=== PATIENT | female | born 1950 | race Caucasian/White ===

== ENCOUNTER 2017-01-07 15:32 | Inpatient (IN) | payer MEDICARE, OTHER ==
[~2017-01-07] VITALS: Ht 157.5 cm; Wt 92.9 kg
--- NOTE | ~2017-01-07 | HP ---
PATIENT'S NAME: TORRI LOUIS [facility] AGE: 66 Y [address] ROOM: G3427 [place], [place] [address] LOCATION: [facility] ADMIT DATE: 01/07/2017 History & Physical DISCHARGE DATE: FAMILY PHYSICIAN: Erwin Hollis MD ATTENDING PHYSICIAN: Monae Mathis DATE OF SERVICE: HISTORY OF PRESENT ILLNESS: This 66 years' old was admitted and referred from [facility] with right frontoparietal brain mass status post biopsy and has been proved to be grade [address] Erwin Hollis. She is admitted for continuous medical treatment and intensive rehabilitation. 1. Unstable gait. 2. Dependent in activities of daily self-care status post biopsy of the brain tumor, glioblastoma multiforme, grade 4. 3. She also has marked weakness in the left upper and lower extremities, especially left upper extremity. 4. She has headaches, and she does not attend very well to the left side, dizziness on and off. PHYSICAL EXAMINATION: GENERAL: She is at the present time and at the time of admission, alert and oriented x3. VITAL SIGNS: Blood pressure 117/72, temperature 97.7, pulse 97, and respiratory rate 15. She is 5 feet 2 inches tall and weighs about 95 kg. HEENT: Head: Normocephalic except for slight, very minimal facial droop on the left side. However, her speech is clear and not wet. Tongue and soft palate are moving symmetrical. She can swallow without difficulty. NEUROLOGIC: She is at the present time able to comprehend and express without difficulty. She denied having any pain except for slight headache. At the present time, she is able to express herself and clearly. Voice is clear, not wet. NECK: Supple. Trachea is central. CHEST: Moving equally and the lungs are clinically clear. HEART: Regular sinus rhythm. ABDOMEN: Soft. She is slightly constipated on and off. We will address it. She is at the present time on the following medications: 1. Tylenol 650 mg q.6 hours. Do not exceed acetaminophen 4 g in q.24 hours. 2. Dulera 100 mcg/5 mcg inhaler daily. 3. Levothyroxine 50 mcg p.o. daily. 4. Colace 100 mg b.i.d. 5. Simvastatin 20 mg p.o. daily. PATIENT'S NAME: TORRI LOUIS [facility] AGE: 66 Y [address] ROOM: [place] [address] LOCATION: [facility] ADMIT DATE: 01/07/2017 History & Physical DISCHARGE DATE: FAMILY PHYSICIAN: Erwin Hollis MD ATTENDING PHYSICIAN: Monae Mathis 6. Keppra 500 mg p.o. b.i.d. 7. MiraLax 17 g p.o. daily, hold if loose bowels. 8. Dulcolax suppository 10 mg rectally p.r.n. 9. MOM 30 mL p.r.n. 10. Antivert 12.5 mg, give 25 mg p.o. daily and p.r.n. 11. Ibuprofen 200 mg p.o. b.i.d. At the present time, she is not on any anticoagulant. We will ask Dr. Riggins, neurosurgeon to advise. She can ambulate for the time being short distance for about 30 feet to 50 feet. Past history of significance: 1. Asthma. 2. Dyslipidemia. 3. Hypothyroid. Did discuss this patient with the referring physician, and we agreed that she will need intensive rehabilitation for about 3 weeks, aiming to discharge home at modified independence. We will put on intensive PT, OT, and speech 3 hours per day, 15 hours per week. We will send also for Keppra level in the a.m. She is on seizure precautions and has been thus marked on the chart. She is with the following allergies: 1. Sulfa. 2. Keflex. 3. Cephradine or Velosef. 4. Macrodantin. 5. Claritin. 6. Singulair. 7. Vioxx. 8. Clarinex. 9. Cephalosporins. 10. Cephalexin. 11. Nitrofurantoin. 12. Loratadine. 13. Montelukast. 14. Rofecoxib. 15. Desloratadine. 16. Lodine. 17. Urex. PATIENT'S NAME: TORRI LOUIS [facility] AGE: 66 Y [address] ROOM: [place] [address] LOCATION: [facility] ADMIT DATE: 01/07/2017 History & Physical DISCHARGE DATE: FAMILY PHYSICIAN: Erwin Hollis MD ATTENDING PHYSICIAN: Monae Mathis The patient will be put on intensive rehab for about 3 weeks, aiming to discharge home at modified independence. We will ask also Dr. Birmingham and hospitalist to follow as needed. On 01/08, her CBC was as follows: White BC 9.2, RBC 4.45, hemoglobin 13.2, hematocrit 39.8, platelets 212. CMS: Sodium 141, potassium 3.8, chloride 106, CO2 of 27, BUN 20, creatinine 0.8, glucose 103, and eGFR 78. UA grossly within normal limits. Prealbumin 25. We will put on intensive rehab and follow as necessary. All the above was explained to her, her , and her daughter. They verbalized understanding and agreement. MONAE MATHIS MD WMS/modl /[id number] D: 935 T: 711 HISTORY & PHYSICAL
--- NOTE | ~2017-01-07 | CON ---
PATIENT'S NAME: TORRI LOUIS [facility] AGE: 66 Y [address] ROOM: G[address] [place], [place] [address] LOCATION: [facility] ADMIT DATE: 01/07/2017 Consultation DISCHARGE DATE: FAMILY PHYSICIAN: Erwin Hollis MD ATTENDING PHYSICIAN: Danilo Mtahis DATE OF CONSULTATION: 01/08/2017 REFERRING PHYSICIAN: Peter Birmingham MD TEAM MEMBERS REPORTING: Include Dr. Mathis; Ioana Olivera, delinquency prevention social worker; Velma Everett, RN; Ina Buchanan, PT; Elisabeth Adams, PT; Ivon Seals, OT; Raegan Whiteside, Speech Therapy; and Gwendolyn Lozano, therapeutic recreation. CURRENT STATUS: Vineet Pereyra is a 66-year-old woman, admitted to our inpatient rehabilitation unit on January 07, 2017, with a diagnosis of glioblastoma multiforme. She also has a history of asthma, hypothyroidism, hyperlipidemia, and constipation. The patient did come to us from the [facility]. She is continent of bowel and bladder. She does occasionally dribble. She has an incision on her head, we are following. No complaints of pain. She is on a regular diet. Good appetite. Prealbumin is within normal limits. She can transfer tcv-ff-ahvbqn and lsypgt-tq-qcg, moderate assistance; haa-ty-xfvfq and exote-db-mzz and yqh-bd-pawtm and mwcjw-jt-tez, minimal assistance. She can walk 120 feet with a front-wheeled walker dependent. Goals have been set for contact guard assistance to standby assistance. She can dress her upper body at moderate assistance; lower body, dependent; grooming, standby assistance from a seated position; bathing, dependent; toilet and shower transfers, dependent; and toileting, dependent. Her left upper extremity has inconsistent movement. She does neglect that left arm. Her goals for OT have been set for standby. Comprehension is mod I to independent and language and expression, mod I to independent. She does have difficulty with scanning. She does compensate with cues. DISCHARGE PLAN: The patient is receiving 3 hours of PT, OT, and speech Saturday through Saturday. The patient has daily rehabilitation, nursing, and physiatry involvement as well therapeutic recreational services. The patient has shown functional improvement and is progressing. Please see her plan of care for specific goals. Plan is for patient to discharge in approximately 3 weeks. Plan is for patient to return to home with her in [place]. They plan to have radiation done in [place]. PATIENT'S NAME: TORRI LOUIS [facility] AGE: 66 Y [address] ROOM: [place] [address] LOCATION: [facility] ADMIT DATE: 01/07/2017 Consultation DISCHARGE DATE: FAMILY PHYSICIAN: Erwin Hollis MD ATTENDING PHYSICIAN: Danilo Mathis IOANA OLIVERA FOR DANILO MATHIS MD TD/modl /[id number] d: 01/13/17 1828 t: 02/18/17 1127, CONSULTATION REPORT
--- NOTE | ~2017-01-07 | CON ---
PATIENT'S NAME: TORRI LOUIS [facility] AGE: 66 Y [address] ROOM: [address] [place], [place] [address] LOCATION: [facility] ADMIT DATE: 01/07/2017 Consultation DISCHARGE DATE: FAMILY PHYSICIAN: Erwin Hollis MD ATTENDING PHYSICIAN: Danilo Dickens DATE OF CONSULTATION: 01/21/2017 PALLIATIVE CARE CONSULTATION: LOCATION: [facility], Room 3441. REFERRING PHYSICIAN: Danilo Dickens MD REASON FOR CONSULTATION: This is a Palliative Care referral due to decreasing overall functional status and declining, and depression due to recent diagnosis of grade 4 glioblastoma. HISTORY OF PRESENT ILLNESS: This is a 66-year-old female patient who had been in normal state of health until mid November 2016. She is retired and noticed that her left foot was dragging behind her. On 12/06/2016, she had developed ataxia and disequilibrium, went to see a doctor in [place], was examined, and had her ears irrigated, was put on ibuprofen and meclizine. Next day, the patient was unable to use her keyboard due to motor difficulties. The patient continued to have progressive disequilibrium and an intentional left-sided and left peripheral vision deficits. She went to the [place] [facility], had a CT scan that revealed a right-sided mass in her head and an MRI revealed a large right frontoparietal mass extending into the splenium of the corpus callosum, thalamus, and posterior basal ganglia suspicious for infiltrating glioma. [facility] On 01/02/2017, she had a right-sided image-guided craniotomy for open biopsy. Biopsy by Dr. Bhargav Villa. It was an open brain biopsy. No debulking surgery was performed. On 01/04/2017, she had seen Dr. Hal Ferguson to discuss chemotherapy options and radiation options. She was seen by Dr. Phelps consulted for Radiation Oncology. The patient was transferred to our Inpatient Rehabilitation Services to increase strength prior to getting radiation and chemotherapy. The patient had been progressing until recently and had declined in being able to have more left-sided weakness and deficit this last weekend, Saturday. The patient currently denies any pain, headache, or discomfort. No nausea or vomiting. Appetite is good. No shortness of breath. She is frustrated and angry on treatment and progression of disease. The patient denies being depressed, just PATIENT'S NAME: TORRI LOUIS [facility] AGE: 66 Y [address] ROOM: [address] [place], [place] [address] LOCATION: [facility] ADMIT DATE: 01/07/2017 Consultation DISCHARGE DATE: FAMILY PHYSICIAN: Erwin Hollis MD ATTENDING PHYSICIAN: Danilo Dickens more frustrated at not being able to care for herself and getting brain cancer, and not able to start her chemotherapy and radiation. PAST MEDICAL HISTORY: Medical problems: 1. Reactive airway disease since 1971. 2. Hypothyroidism. 3. Hyperlipidemia. 4. Osteoarthritis in left knee and ankles. 5. Colonic diverticulosis. 6. Class 2 obesity, BMI of 38.9. PAST SURGICAL HISTORY: 1. , 3, para 2, ABO 0. 2. In 2017, right-sided guided craniotomy for open biopsy. ALLERGIES: CEPHALEXIN LED TO URTICARIA, SULFA LED TO URTICARIA, LORATADINE, MONTELUKAST, MACRODANTIN OR NITROFURANTOIN, ROFECOXIB, CEPHRADINE, AND DESLORATADINE. CURRENT MEDICATIONS: 1. Dulera 100 mcg/5, 2 puffs every bedtime. 2. Colace 100 mg b.i.d. 3. Keppra 500 mg p.o. every 48 hours. 4. Synthroid 50 mcg daily. 5. MiraLAX 17 g daily. 6. Vitamin B12 p.o. daily. 7. Zocor 20 mg every p.m. 8. Lovenox 40 mg subcutaneous daily. 9. P.r.n. medications; albuterol sulfate 2.5 inhalations every 2 hours p.r.n. 10. Advil 200 mg p.o. b.i.d. 11. Antivert 25 mg p.o. daily. 12. Milk of magnesia 30 mL p.o. daily. 13. Tylenol 650 mg p.o. every 6 hours. 14. Dulcolax 10 mg suppository per rectum p.r.n. constipation. FAMILY HISTORY: Sister, colon cancer at age 60. Paternal aunt and three paternal uncles developed brain cancer when they were in their 50s and from it. Brother had diabetes. Sister, colon cancer, and paternal grandmother, stomach cancer. SOCIAL HISTORY: She is . Both she and her are retired. 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 They live in [place], have a son in [place], a son in [place], and a PATIENT'S NAME: TORRI LOUIS [facility] AGE: 66 Y [address] ROOM: [address] [place] [address] LOCATION: [facility] ADMIT DATE: 01/07/2017 Consultation DISCHARGE DATE: FAMILY PHYSICIAN: Erwin Hollis MD ATTENDING PHYSICIAN: Danilo Dickens daughter in [place]. No smoking, alcohol, or illicit drug use. REVIEW OF SYSTEMS: A complete review of systems was done and is negative except as mentioned in the HPI. PHYSICAL EXAMINATION: GENERAL: This is a 66-year-old female in no acute distress. Alert and oriented, and anxious about disease process and treatment plan. VITAL SIGNS: Temperature 97.3, pulse 91, respirations 18, blood pressure 124/78, and O2 saturation is 95%. She is 5 feet 2 inches. Weighs 204 pounds with a BMI of 38.9. SKIN: Warm, dry, color pale. HEENT: Head; normocephalic and atraumatic. Sclerae are nonicteric. Conjunctivae are pale pink. Mouth is pink and moist without exudate. Healed craniotomy scar. LYMPHATICS: No cervical adenopathy or thyromegaly. RESPIRATORY: Clear to auscultation bilaterally. Breath sounds even and regular. CARDIAC: S1 and S2 without murmurs or bruits. No lower extremity edema. ABDOMEN: Soft, nondistended, and nontender. Positive bowel tones. No hepatosplenomegaly. NEUROLOGIC: Grossly intact. MUSCULOSKELETAL: Flaccid on left side, on the left arm and weak in left leg. EXTREMITIES: No cyanosis or deformity. Palliative performance scale is 40%, mainly in bed, and able to do most activity and total care. Intake is normal. Level of consciousness is full. IMPRESSION: Weakness on the left side and fatigue, anxiety related to new diagnosis of glioblastoma and finances. PLAN: 1. I met with the patient. Discussed recent diagnosis. Both and the patient have a fair understanding of current diagnosis and treatment plan. The patient states that she was told by one doctor in [place] that she had about 18 months to live, another doctor told her that she could live between 5 and 10 years. 2. Discussion of goals of care. The patient is wanting to do aggressive treatments, chemotherapy and radiation to control tumor. Knows that she has to wait so long after biopsy to start treatment plan, was working to get medicine and possibly start radiation closer to home. Recently patient declined in overall physical status. is not able to care for at home. custodial facilities do not take with radiation PATIENT'S NAME: TORRI LOUIS [facility] AGE: 66 Y [address] ROOM: [facility] [place] [address] LOCATION: [facility] ADMIT DATE: 01/07/2017 Consultation DISCHARGE DATE: FAMILY PHYSICIAN: Erwin Hollis MD ATTENDING PHYSICIAN: Danilo Dickens and chemotherapy. Discussed possible options and goals of care. a. Would like to go home, but is not handicap accessible and not feasible. cannot care for due to his own physical problems. b. Wanted to look into [place] [facility] [place] [facility] or Care Home in [place]. Granddaughter works there. Discussed that if the patient went to an assisted living, she would still have to hire caregivers. Discussed some options of obtaining caregivers in the area. c. Wants to continue with aggressive treatment, get stronger and get back up worker to home. d. Would like to change rooms. Feels like this room is very depressing. 3. Code status and advance directive: The patient is currently a full code. We will discuss advanced directive and POLST form more tomorrow due to the patient's anxiety level. 4. Weakness and fatigue. She is working with Physical Therapy. Overall recent decline. May consider rescanning of brain to see if there is progression. Dexamethasone was stopped. We will defer to Oncology and hospitalists. 5. We will discuss with Ioana nephrology social worker on checking into options at assisted living facility in [place] and long-term in [place] with possibility of hiring caregivers if goes to assisted living facility. The patient would also like information on transportation from assisted living facilities, if they do it or not. We will check with nurses on possibly changing rooms. 6. We will continue to work on goals of cares and advance directive, and letting the patient vent. Thank you for allowing me to assist this patient and family. Total time was 55 minutes with 45 minutes of counseling, discussion of goals of care. ALANA LEPE NP FOR MD FITZ MOSES/brigitte /[id number] d: 01/22/17 1416 t: 02/01/17 1720, CONSULTATION REPORT
--- NOTE | ~2017-01-07 | CON ---
PATIENT'S NAME: TORRI LOUIS [facility] AGE: 66 Y [address] ROOM: [address] [place], [place] [address] LOCATION: [facility] ADMIT DATE: 01/07/2017 Consultation DISCHARGE DATE: FAMILY PHYSICIAN: Erwin Hollis MD ATTENDING PHYSICIAN: Danilo Dickens DATE OF CONSULTATION: 01/07/2017 REFERRING PHYSICIAN: Peter Birmingham MD REASON FOR CONSULTATION: Medical management. CHIEF COMPLAINT: Left upper and left lower extremity weakness. HISTORY OF PRESENT ILLNESS: This is a 66-year-old female with a history of brain tumor, diagnosed by biopsy in [facility] and according to the patient, there is no metastasis. The patient's complaint is left upper and left lower extremity weakness. The patient was referred here for strengthening of her weakness. The patient will be at rehab here for PT and OT. We have been consulted for medical management. The patient states that she feels well without any shortness of breath or chest pain or palpitation or any other problem besides the constipation and also this left upper and left lower extremity weakness. She also denies any seizure disorder in the past. REVIEW OF SYSTEMS: As mentioned in the history of present illness. All other systems were reviewed and were negative except those mentioned in the history of present illness. PAST MEDICAL HISTORY: 1. Asthma. 2. Hypothyroidism. 3. Hyperlipidemia. 4. Constipation. ALLERGIES: KEFLEX CAUSES HIVES; SINGULAIR CAUSES TINNITUS; CEPHALOSPORIN, UNKNOWN; CLARINEX, UNKNOWN; CLARITIN CAUSES TINNITUS; LODINE, UNKNOWN REACTION; NITROFURANTOIN, UNKNOWN REACTION; SULFA, UNKNOWN REACTION; UREX, ALSO UNKNOWN REACTION; VELOSEF, ALSO UNKNOWN REACTION; VIOXX, CAUSES NAUSEA AND VOMITING. PATIENT'S NAME: TORRI LOUIS [facility] AGE: 66 Y [address] ROOM: [address] [place], [place] [address] LOCATION: [facility] ADMIT DATE: 01/07/2017 Consultation DISCHARGE DATE: FAMILY PHYSICIAN: Erwin Hollis MD ATTENDING PHYSICIAN: Danilo Dickens SOCIAL HISTORY: Denies any cigarette or alcohol or any illegal drug use. FAMILY HISTORY: The patient could not remember much about her parents' medical history. This was question and the patient could not remember. PAST SURGICAL HISTORY: Brain tumor, status post biopsy in [facility]. PHYSICAL EXAMINATION: VITAL SIGNS: At the time of my evaluation; temperature 98.6, heart rate 79, respirations 16, blood pressure 112/70, and saturation 94% on room air. GENERAL APPEARANCE: Alert and oriented x3. Currently, in no acute distress. HEENT: Pupils equally round and reactive to light. Extraocular muscles intact. Visual patterson intact. Anicteric sclerae. Nasal turbinates are normal bilaterally. Moist oral mucosa. No tongue deviation upon protrusion. No facial droop. No slurred speech. NECK: No JVD. CARDIOVASCULAR: Regular rate and rhythm. Normal S1 and S2. No murmur. No rubs. No gallops. RESPIRATORY: Clear to auscultation. No rales. No rhonchi. No wheezing. No crackles. ABDOMEN: Obese, soft, nontender, nondistended, bowel sounds present. No mass. EXTREMITIES: No edema in upper or lower extremities. NEUROLOGIC: Remarkable for left upper extremity weakness about 2/5 and the left lower extremity weakness at about 4/5. Sensation intact. No facial droop. Pronator drift positive on the left side. Fnrstq-cc-xtom unable to be performed with the left hand due to the muscle weakness. No facial droop. No slurred speech. No tongue deviation upon protrusion. Visual field intact. Gait not assessed due to fall risk. Babinski positive on the left foot. Deep tendon reflex present +2 bilaterally at both knees and also at both biceps. Proprioception and vibration intact in all extremities. LABORATORY DATA: None. IMAGING STUDIES: None. ASSESSMENT AND PLAN: 1. Regarding her brain tumor: Defer to rehab service and also to Neurosurgery Service. Will continue the Keppra for seizure prevention. She is taking Keppra 500 mg p.o. b.i.d. PATIENT'S NAME: TORRI LOUIS [facility] AGE: 66 Y [address] ROOM: [address] [address] LOCATION: [facility] ADMIT DATE: 01/07/2017 Consultation DISCHARGE DATE: FAMILY PHYSICIAN: Erwin Hollis MD ATTENDING PHYSICIAN: Danilo Dickens 2. Regarding her asthma: Well controlled. Continue inhaled steroids and the long-acting beta2-agonist with Dulera. 3. Regarding her hypothyroidism: Continue levothyroxine 50 mcg p.o. daily. 4. Regarding her hyperlipidemia: Continue simvastatin 20 mg p.o. every night. 5. Regarding her constipation: Continue Dulcolax suppository p.r.n. as well as magnesium hydroxide p.r.n. and also continue daily MiraLax once daily. 6. Regarding her deep vein thrombosis prophylaxis: Defer to Neurosurgery and to rehab service. Time spent in care on the day of consultation 35 minutes where 10 minutes was spent on chart review and the remainder of time was spent on interview and physical examination and also on counseling. The counseling includes going over plan of care with the patient and also addressing all her questions and concerns to her satisfaction. Further plan will depend on clinical course. MD TANNER ALEJO/brigitte /[id number] d: 01/08/17121 t: 01/12/175, CONSULTATION REPORT
--- NOTE | ~2017-01-07 | CON ---
PATIENT'S NAME: TORRI LOUIS [facility] AGE: 66 Y [address] ROOM: G3441 [place], [place] [address] LOCATION: [facility] ADMIT DATE: 01/07/2017 Consultation DISCHARGE DATE: 01/25/2017 FAMILY PHYSICIAN: Erwin Hollis MD ATTENDING PHYSICIAN: Danilo Mathis DATE OF CONSULTATION: 01/22/2017 REFERRING PHYSICIAN: Peter Birmingham MD TEAM MEMBERS REPORTING: Dr. Mathis; Ioana Olivera, social service technician; inpatient rehab nursing staff; Ina Buchanan, PT; Elisabeth Adams, PT; Ivon Seals, OT; Raegan Whiteside, Speech Therapy; Gwendolyn Lozano, therapeutic rec; and sister Gwen Qureshi, [facility]. CURRENT STATUS: Torri is a 66-year-old woman, admitted to our inpatient rehab unit on January 07, 2017, with a diagnosis of glioblastoma multiforme. The patient is incontinent of bladder occasionally. Does not complain of pain. She is on a regular diet. Prealbumin is 25, currently at low nutritional risk. She can transfer sit to supine and supine to sit at max assistance; sit to stand and stand to sit, minimal assistance; and bed to chair and chair to bed, moderate assistance. She can walk 20 to 30 feet with a alfredito-walker at minimal assistance. She met 0 short-term PT goals. The patient is dependent for upper and lower body dressing. Grooming, standby. Bathing, dependent. Shower and toilet transfers, dependent, and toileting, dependent. Feeding is standby. Comprehension is at minimal assistance. Language and expression, minimal assistance. Memory, standby, and problem solving, minimal assistance. Car transfers are currently contact guard assistance. The patient does seem to be very angry. She has decreased flexibility in her thinking. DISCHARGE PLAN: The patient is receiving 3 hours of PT, OT and speech Saturday through Saturday. The patient has daily rehab, nursing, and physiatry involvement as well as therapeutic rec services. The patient has shown functional improvement and is progressing. Please see her plan of care for specific goals. Plan is for patient to discharge on January 25, 2017. We were unable to get the patient into a residential facility due to patient being on oral Temodar and needing to start radiation therapy. The patient will be going to [facility] with family paying for additional caregivers. IOANA OLIVERA FOR DANILO MATHIS MD PATIENT'S NAME: TORRI LOUIS [facility] AGE: 66 Y [address] ROOM: [address] [address] LOCATION: [facility] ADMIT DATE: 01/07/2017 Consultation DISCHARGE DATE: 01/25/2017 FAMILY PHYSICIAN: Erwin Hollis MD ATTENDING PHYSICIAN: Danilo Mathis TD/marilynnl /[id number] d: 02/05/17 0013 t: 02/18/17 1132, CONSULTATION REPORT
--- NOTE | ~2017-01-07 | DS ---
PATIENT'S NAME: TORRI LOUIS [facility] AGE: 66 Y [address] ROOM: [address] [place] [address] LOCATION: [facility] ADMIT DATE: 01/07/2017 Discharge Summary DISCHARGE DATE: FAMILY PHYSICIAN: Erwin Hollis MD ATTENDING PHYSICIAN: Monae Mathis This lady was admitted to Rehab Unit at [facility] on 01/07/2017, is discharged to go to assisted living in [place], [place], on 01/25/2017. She is at the present time alert and oriented, markedly weak on the left upper and lower extremities. Has deteriorated recently. Has been consistently and regularly followed by Dr. Birmingham and also by Dr. Riggins and hospitalist on a regular basis. She is at the present time alert and oriented. Vitals are as follows: Blood pressure 115/84, temperature 98.0, pulse 97, and respiration rate 16. She is consistently getting weaker on the left upper and lower extremities, and is at the present time to continue with PT, OT, Speech, and aide at the [facility] in [place]. She is on the following medications: 1. Vitamin B12 500 mcg p.o. daily. 2. Decadron 4 mg p.o. q.6 hours. 3. Colace 100 mg p.o. daily. 4. Levothroid 50 mcg p.o. daily. 5. Protonix 40 mg p.o. daily. 6. MiraLAX 17 g p.o. daily as needed. 7. Zocor 20 mg p.o. in the evening. 8. Dulera 2 puffs inhalation p.r.n. and in the evening. 9. Tylenol 650 q.6 hours, do not exceed acetaminophen 4 g q.24 hours. 10. Dulcolax suppository 10 mg rectally p.r.n. 11. MOM 30 mL p.r.n. The patient is with the following discharge summary: 1. Unstable gait. 2. Dependent in activities of daily and self-care. 3. Marked left-sided weakness with glioma of the brain status post right- sided biopsy done per history. 4. Headache with dizziness and neglect of the left side. 5. Hypothyroid. 6. Osteoarthritis with left knee and ankle involved. 7. Dyslipidemia. 8. Cdgf-te-rsqfmjgj obesity. PATIENT'S NAME: TORRI LOUSI [facility] AGE: 66 Y [address] ROOM: [address] [place] [id number] LOCATION: [facility] ADMIT DATE: 01/07/2017 Discharge Summary DISCHARGE DATE: FAMILY PHYSICIAN: Erwin Hollis MD ATTENDING PHYSICIAN: Monae Mathis 9. Colonic diverticulitis as per history. She is not to drive and/or operate on any mechanical devices until she is re- evaluated. I have given her Home Health, PT, OT, Speech, and [facility] with aide 3 times per week for the coming 4 weeks. Followup with her family physician, and renewal of her medication and her therapy through her family. All the above was explained to her and her in detail and all of their questions answered. They verbalized understanding and agreement with plan of care. MONAE MATHIS MD WMS/modl /[id number] d: 01/25/17209 t: 01/25/17 0726, DISCHARGE SUMMARY
--- NOTE | ~2017-01-07 | CONS ---
PATIENT'S NAME: TORRI LOUIS [facility] AGE: 66 Y [address] ROOM: [address] [place], [place] [address] LOCATION: [facility] ADMIT DATE: 01/07/2017 Oncology Report DISCHARGE DATE: FAMILY PHYSICIAN: Erwin Hollis MD ATTENDING PHYSICIAN: Danilo Dickens RADIATION THERAPY CONSULTATION DATE OF SERVICE: REFERRING PHYSICIAN: Peter Birmingham MD DIAGNOSIS: Glioblastoma. Dear Doctor: It was a pleasure to see in routine inpatient consultation Mrs. Torri Louis. As you recall, this is a 66-year-old white female, recently diagnosed with multifocal brain lesions, which upon the frozen section were consistent with high-grade glioblastoma. In late November of 2016, the patient noted onset of left lower extremity weakness and numbness as well as some difficulty with ambulation and complaining of stubbing her toes. Also complained of some episodes of dizziness at that point. The patient was seen by her primary care physician. He started treating her for vertigo. In mid December, the patient's symptoms progressed. She had some numbness in the left finger tips as well as some left upper extremity neglect. The patient was seen in the emergency room, underwent a workup including an MRI, which revealed a multifocal contrast enhancing mass in the right cerebral hemisphere. The patient was transferred to [facility] for neurological evaluation. An MRI done on 12/26/2016 revealed a large conglomerate of frontoparietal contrast-enhancing masses with extension into the splenium of the corpus callosum, thalamus, and posterior basal ganglia, all of this is suspicious for an infiltrating glioma. The patient was started on Keppra, and then was readmitted on 01/02/2017, underwent a right-sided image-guided craniotomy with biopsy. Final pathology came back as glioblastoma. Postop MRI revealed evidence of biopsy, but otherwise was unchanged. The patient has been sent to [facility] for rehabilitation, and she is doing reasonably well. When seen today, the patient is sitting in a chair. Her is in the room. She is alert and oriented. States that she has weakness significantly in her left upper extremity, somewhat in her left lower extremity. She is aware of her diagnosis, indicates she wishes to be treated in [place], PATIENT'S NAME: TORRI LOUIS [facility] AGE: 66 Y [address] ROOM: [address] [place], [place] [address] LOCATION: [facility] ADMIT DATE: 01/07/2017 Oncology Report DISCHARGE DATE: FAMILY PHYSICIAN: Erwin Hollis MD ATTENDING PHYSICIAN: Danilo Dickens [place], which is closer to home for her. ALLERGIES: THE PATIENT HAS ALLERGIES TO KEFLEX, SINGULAIR, CEPHALOSPORINS, CLARINEX, CLARITIN, LODINE, MACRODANTIN, SULFA, UREX, VELOSEF, VIOXX. MEDICATIONS: Current medications include: 1. Lovenox. 2. Dulera. 3. Levothroid. 4. Colace. 5. Zocor. 6. Keppra. 7. MiraLAX. 8. Dulcolax. 9. MOM. 10. Antivert. 11. Advil. 12. Tylenol. PAST MEDICAL HISTORY: Positive for asthma, hyperlipidemia, and thyroid disease. PAST SURGICAL HISTORY: Positive for 3 C-sections. SOCIAL HISTORY: The patient indicates that on her father side, she had 3 uncles who had brain tumors. Also indicates there was another type of malignancy in the family on her father's side. The patient has 3 children. SOCIAL HISTORY: The patient was born in [place], [place]. She indicates that she did not smoke, did not drink. No history of drug use noted. No previous history of radiation therapy or chemotherapy noted. REVIEW OF SYSTEMS: GENERAL: She indicates she is doing well, has not lost weight. She does indicate she had some staggering when she walks. HEADACHES: No complaints of significant headache. Did have some complaints of dizziness. VISION: No problems with vision. HEARING: No complaints of hearing problems. ORAL CAVITY: No complaints of problems with the oral cavity. PATIENT'S NAME: TORRI LOUIS [facility] AGE: 66 Y [address] ROOM: [address] [place], [place] [address] LOCATION: [facility] ADMIT DATE: 01/07/2017 Oncology Report DISCHARGE DATE: FAMILY PHYSICIAN: Erwin Hollis MD ATTENDING PHYSICIAN: Danilo Dickens NECK: No complaints of neck problem. LUNGS: No complaints of shortness of breath. COR: No complaints of left arm pain. STOMACH: No problems with GI problems. : No problems passing her urine. No hematuria. NEUROLOGICAL: The patient did complain of some dizziness and difficulty with ambulation. MUSCULOSKELETAL: No significant complaints. ENDOCRINE: The patient does give a history of hypothyroidism. PRIOR AUTHORIZATION TECHNICIAN: The patient is a 3 with 3 C-sections. PHYSICAL EXAMINATION: VITAL SIGNS: Temperature of 98, a pulse of 82, a blood pressure 118/84, weight is 96.3 kg. GENERAL: A well-developed, well-nourished white female, lying in bed. HEAD AND NECK: Normocephalic, atraumatic. Extraocular motions are intact. Oral cavity, no masses or mycotic lesions. NECK: No masses noted. NEUROLOGIC: The patient is alert and oriented x3. Cranial nerves are grossly normal. Muscle strength on the right are 5/5 upper and lower extremities. On the left, the patient has 3+ to 4- out of 5 strength in the left upper extremity, and 4- out of 5 in the left lower extremity. We did not attempt to walk the patient today. Mini-mental exam grossly normal. This concluded the limited physical exam of this patient. LABORATORY DATA: The patient has had scans done. This indicated the patient had a large right occipital lobe and right temporal lobe mass with right-sided basal ganglia, thalamic lobe masses noted. These masses measured up to 7.8 cm in largest axial dimension with several ring-enhancing components measuring up to 11 mm in size. Abnormal FLAIR was seen around these areas. Local mass effect with 4 mm of right to left subfalcine shift was noted. Pathology has come back as glioblastoma. ICD 10. IMPRESSION: A 66-year-old white female with a biopsy-proven glioblastoma. PLAN: We discussed with the patient and her the options available to her. We went over the potential risks, benefits of radiation therapy. Indicated that standard of care per the [employer] would be that of a radiotherapy for a 6-week period of time with concomitant Temodar. PATIENT'S NAME: TORRI LOUIS [facility] AGE: 66 Y [address] ROOM: [place] [address] LOCATION: [facility] ADMIT DATE: 01/07/2017 Oncology Report DISCHARGE DATE: FAMILY PHYSICIAN: Erwin Hollis MD ATTENDING PHYSICIAN: Danilo Dickens We went over the risks and benefits and side effects of therapy. The patient and her asked questions. These were answered to their satisfaction. The patient indicated she wished to be treated in the facility at [place] since this was closer to home. We indicated we were in agreement with this, but that we would not want the patient's therapy being put off for a protracted period of time. As such, we will check on the patient next week. Should she be progressing with her physical rehabilitation, we would have her sent to [place] for evaluation at their facility for radiotherapy. Should her potential start date would be extended beyond what would be a norm, we would consider starting her in our facility with the thought being that at whatever facility she starts at, should be the facility at which she completes her therpy. We thank you for allowing us to consult on this patient. Sincerely, JANETTE LACEY MD, PHD FZL/modl /[id number] CC: MD Danilo Bruno MD Daniel Surdell, MD W Zhen, MD d: 01/11/17 2108 t: 01/27/17 0958, CONSULTATION REPORT
--- NOTE | ~2017-01-07 | CON ---
PATIENT'S NAME: TORRI LOUIS [facility] AGE: 66 Y [address] ROOM: [id number] [place], [place] [address] LOCATION: [facility] ADMIT DATE: 01/07/2017 Consultation DISCHARGE DATE: FAMILY PHYSICIAN: Erwin Hollis MD ATTENDING PHYSICIAN: Danilo Dickens DATE OF CONSULTATION: 01/10/2017 REFERRING PHYSICIAN: Peter Birmingham MD HISTORY OF PRESENT ILLNESS: Torri Louis is a 66-year-old woman with a glioblastoma multiforme. The history of the present illness is from the patient who is a good historian; her who is helpful; from review of the [facility] record; and from review of the records obtained from the [facility]. The patient was in her normal state of health until mid November 2016. She lived in [place], [place] with her . She was retired. She had no exercise program. Although she experienced some discomfort in her left knee when she walked, she had no practical limits. In mid November 2016, the patient noticed her left foot "dragged" behind her. On 12/06/2016, the patient developed ataxia and disequilibrium. She was concerned she might have benign paroxysmal positional vertigo, and reported for evaluation to a clinic in [place]. The patient was examined. One of her ear canals contained excessive wax, which was irrigated. Ibuprofen and meclizine were prescribed. The next day, the patient was unable to use her keyboard because of motor difficulties. The disability did not improve. In mid December, the patient developed progressive disequilibrium, and then inattention to the left side and left peripheral visual field defects. The patient reported for evaluation of her hemineglect and hemiparesis. She was seen in the [place] [facility]. A CAT scan revealed a right-sided mass. An MRI revealed a large right frontoparietal mass extending to the splenium of the corpus callosum, thalamus, and posterior basal ganglia suspicious for an infiltrating glioma. The patient was placed on dexamethasone, and was referred to the [facility]. At the [facility], the patient's condition was stabilized. She was discharged home for several days, and then returned on 01/02/2017. On that date, Dr. Bhargav Villa performed a right-sided image-guided craniotomy for open biopsy. The brain biopsy was done with the Patient Engagement Systems Navigational System. It was an open brain biopsy. Debulking surgery could not be performed. The patient tolerated PATIENT'S NAME: TORRI LOUIS [facility] AGE: 66 Y [address] ROOM: [place] [address] LOCATION: [facility] ADMIT DATE: 01/07/2017 Consultation DISCHARGE DATE: FAMILY PHYSICIAN: Erwin Hollis MD ATTENDING PHYSICIAN: Danilo Dickens the procedure reasonably well. Following her evaluation, the patient was seen in consultation. On 01/04/2017, Dr. Hal Ferguson saw the patient. He recommended concurrent radiation with temozolomide 75 mg/m2 p.o. daily for six weeks in combination with radiation, followed by maintenance temozolomide of 150 mg/m2 p.o. daily for five days monthly. The patient was seen in Radiation Oncology consultation by Dr. Geovanny Phelps. Dr. Phelps concurred with those recommendations. The biopsy revealed a WHO grade IV/IV glioblastoma multiforme. The mutant IDH1 was not present, and the mutant p3 was overexpressed. The MGMT promotor methylation status has not been ascertained. The patient is currently on the Inpatient Rehabilitation Service. She is unable to walk by herself. She can feed herself. She needs standby assist to walk. She may have some persistent disequilibrium, and has persistent left arm weakness as well as left leg weakness. The patient has a positive family history of cancer. She makes the point that her paternal aunt developed a brain cancer when she was over 50 and . Three paternal uncles also had brain cancer and when they were over 50. She had a sister who had colon cancer at age 60. ACTIVE MEDICAL PROBLEMS, CHRONIC AND DIAGNOSED: 1. Reactive airways disease since 1971. The patient has had three attacks. She has not been hospitalized. She has been on inhaled bronchodilators and corticosteroids. 2. Hypothyroidism noted in 2014 on a regular checkup. She has experienced some weight loss, and has experienced improvement in her hair growth since she has been on thyroid replacement. 3. Hyperlipidemia noted in 2006. 4. Osteoarthritis in the left knee and ankles. 5. Colonic diverticulosis noted on screening colonoscopy in 2010. 6. Partially empty sella noted on MRI scan. 7. Class II obesity. On 01/07/2017, the BMI was 38.9 kg/m2. ACUTE MEDICAL ILLNESSES (RESOLVED), PAST SURGERIES, AND INJURIES: 1. 1971 to 1979: G3, P3, AB0. All the patient's deliveries were by section. 2. 2016, right-sided image-guided craniotomy for open biopsy. MEDICATIONS UPON ADMISSION: 1. Acetaminophen 650 mg p.o. every six hours p.r.n. pain. 2. Fluticasone/salmeterol one puff inhaled daily. PATIENT'S NAME: TORRI LOUIS [facility] AGE: 66 Y [address] ROOM: [place] [address] LOCATION: [facility] ADMIT DATE: 01/07/2017 Consultation DISCHARGE DATE: FAMILY PHYSICIAN: Erwin Hollis MD ATTENDING PHYSICIAN: Danilo Dickens 3. Ibuprofen 200 mg p.o. b.i.d. 4. Levetiracetam 500 mg p.o. b.i.d. 5. Levothyroxine sodium 0.05 mg p.o. q.24 h. 6. Meclizine 25 mg p.o. q.24 h. 7. Simvastatin 20 mg p.o. at bedtime. ADVERSE REACTIONS TO MEDICATIONS, TRANSFUSIONS, AND ALLERGIES: 1. Cephalexin led to urticaria. 2. Sulfa led to urticaria. 3. Loratadine. 4. Montelukast. 5. Nitrofurantoin. 6. Rofecoxib. 7. Cephradine. 8. Desloratadine. The patient denies any history of transfusions. TOBACCO: None. ALCOHOL: None. CAFFEINE: None. IMMUNIZATIONS: Positive flu. Positive Pneumovax in 2015. Negative tetanus toxoid booster in last ten years. Positive varicella zoster virus. FAMILY HISTORY: As noted, the patient reports her sister had colon cancer at 60; a paternal aunt and three paternal uncles developed brain cancer when they were 50 and from it. SOCIAL HISTORY: The patient was born in [place], [place] but graduated a [place], [place] [employer]. She went to a community college, but did not graduate. 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 Her was a anthropology department chair. They have lived in [place], [place] since 1971. They have a son in [place] and a son in [place], [place]. They have a daughter in [place], [place]. They are members of the [employer] [employer] [facility] [employer] [employer]. REVIEW OF SYMPTOMS: PATIENT'S NAME: TORRI LOUIS [facility] AGE: 66 Y [address] ROOM: [facility] [place] [address] LOCATION: [facility] ADMIT DATE: 01/07/2017 Consultation DISCHARGE DATE: FAMILY PHYSICIAN: Erwin Hollis MD ATTENDING PHYSICIAN: Danilo Dickens Negative other than those noted in the history of the present illness. PHYSICAL EXAMINATION: VITAL SIGNS: Pulse was 80 and regular, blood pressure was 120/85, respiratory rate was 18, and temperature was 98 degrees. Height is 62 inches and weight is 96.5 kg (213 pounds) with BMI of 38.9 kg/m2. GENERAL: Well-developed, obese, 66-year-old female, in no acute distress. HEENT: Healed craniotomy scar. LYMPHATICS: Lymph nodes were nonpalpable. NECK: Without JVD or carotid bruits. CHEST: Clear. CARDIOVASCULAR: Regular rate and rhythm. No murmurs, bruits, or adventitious sounds. BREASTS: Not examined. ABDOMEN: Healed section scar. No masses, tenderness, or megaly. GENITALIA AND RECTAL: Not examined. EXTREMITIES: Without peripheral edema. Pulses were 2+ throughout. NEUROLOGICAL: Cranial nerves II through XII were intact. Strength was 5/5 on the right. Strength in the left leg was 4/5 and the left arm is 2/5. IMPRESSION: 1. A 66-year-old woman with a WHO grade IV/IV mutant IDH1 not present, p53 overexpression present, MGMT methylation promotor status currently undetermined, glioblastoma multiforme of the frontoparietal area of the brain, also involving the thalamus, posterior basal ganglia, and splenium of the corpus callosum, inoperable for cure. The patient's Karnofsky performance status is currently 40%. 2. Risk factors include her age of 66. Given her reported family history, a genetics consultation is reasonable and standard. 3. The patient is currently on inpatient rehabilitation. The adjuvant chemoradiation program that has been recommended is appropriate for patients with a Karnofsky performance status of 70% or greater. She is committed to this program. It is reasonable to implement it as long as her performance status does not decline and we hope it will improve. 4. If the patient's performance status does not improve, standard adjuvant temozolomide and alternating electric currents need to be re-evaluated. 5. The patient should be able to tolerate her therapy without grade 3 or 4 toxicity. 6. The patient is currently on postoperative day 8 following her open biopsy. Three weeks of rehabilitation are currently anticipated. We will need to involve Radiation Oncology to see when radiation can be initiated, and to see if it is possible to transfer to another Radiation Oncology Unit in the middle of the treatment program. It would certainly be easy to transfer her medical oncology care, but this is less complex PATIENT'S NAME: TORRI LOUIS [facility] AGE: 66 Y [address] ROOM: [place] [address] LOCATION: [facility] ADMIT DATE: 01/07/2017 Consultation DISCHARGE DATE: FAMILY PHYSICIAN: Erwin Hollis MD ATTENDING PHYSICIAN: Danilo Dickens to plan than radiation oncology patterson. RECOMMENDATIONS: DIAGNOSTIC 1. Consult Dr. Lauro Morales. 2. Determine the MGMT promotor methylation status. This might help her clinicians prognosticate and treat in the future. 3. If Dr. Morales is agreeable, the patient will receive involved field radiation therapy, 6000 cGy in thirty 200 cGy fractions over six weeks in conjunction with temozolomide 75 mg/m2 p.o. at bedtime starting the night prior to the initiation of radiation and completed the night prior to the last radiation fraction. 4. Dapsone or inhaled pentamidine will have to be employed for prophylaxis of Pneumocystis jiroveci. 5. It would be reasonable to taper and discontinue her levetiracetam over the next 2 to 3 weeks if she does not have seizures. 6. We will defer to Dr. Riggins's recommendations regarding steroids. PATIENT EDUCATION 1. Gave her the [employer]. material on glioblastoma multiforme, and gave her a customized handout on her situation. 2. Recommended a Genetics consultation. MD JADEN HOLLIDAYB/modl /[id number] CC: MD Bhargav Madrigal MD Fishel Z Liberman, MD, PhD MD Louisa Walters APRN Chinyere N Obasi, MD PATIENT'S NAME: TORRI LOUIS [facility] AGE: 66 Y [address] ROOM: [place] [address] LOCATION: [facility] ADMIT DATE: 01/07/2017 Consultation DISCHARGE DATE: FAMILY PHYSICIAN: Erwin Hollis MD ATTENDING PHYSICIAN: Danilo Dickens MD Shawn P Murdock, MD Chung Chen, MD d: 01/11/178 t: 01/14/171056, CONSULTATION REPORT
--- NOTE | ~2017-01-07 | CON ---
PATIENT'S NAME: TORRI LOUIS [facility] AGE: 66 Y [address] ROOM: [id number] [place], [place] [address] LOCATION: [facility] ADMIT DATE: 01/07/2017 Consultation DISCHARGE DATE: 01/25/2017 FAMILY PHYSICIAN: Erwin Hollis MD ATTENDING PHYSICIAN: Danilo Mathis DATE OF CONSULTATION: 01/15/2017 REFERRING PHYSICIAN: Peter Birmingham MD TEAM MEMBERS REPORTING: Dr. Mathis; Ioana Olivera, professor of social work. inpatient rehab nursing staff; Ina Buchanan, PT; Elisabeth Adams, PT; Ivon Seals, OT; Raegan Whiteside, Speech Therapy; Gwendolyn Lozano, therapeutic rec; and sister Gwen Francisco, Pastoral Care. CURRENT STATUS: Torri is a 66-year-old woman, admitted to our inpatient rehab unit on January 07, 2017, from [facility] with a diagnosis of glioblastoma multiforme. The patient also has a history of reactive airway disease, hypothyroidism, hyperlipidemia, osteoarthritis, colonic diverticulosis, and class 2 obesity. The patient is continent of bowel and bladder. She has a healing incision. Takes Tylenol for pain. The patient is on a regular diet. Currently, at low nutritional risk. She can transfer sit to supine and supine to sit at moderate assistance; sit to stand and stand to sit, contact guard assistance; stand pivot transfers, minimal assistance. She can walk 15 to 60 feet with a alfredito- walker and cuing at minimal assistance. Losses of balance when turning. She can climb 4 stairs with 1 railing, which is still a dependent task. She can dress her upper body at max assistance; lower body, dependent. Grooming, standby; bathing, moderate assistance; toilet and shower transfers, minimal assistance; toileting, dependent; feeding, standby. 1/4 short-term OT goals were met. The patient's comprehension is at minimal assistance. Language and expression, minimal assistance. Memory mod I to independent, and problem solving, minimal assistance. The patient does exhibit some visual neglect, some pocketing. She is very tangent in conversation and exhibits a facial droop. She has contact guard assistance for car transfers, needs cuing for scanning. Overall safety awareness is poor. Patient does enjoy prayer with pastoral care. DISCHARGE PLAN: The patient is receiving 3 hours of PT, OT, and speech Saturday through Saturday. The patient has daily rehab, nursing, and physiatry involvement as well as therapeutic rec services. The patient has shown functional improvement and is progressing. Please see her plan of care for specific goals. Plan is for patient to discharge soon. Working on what the discharge plan will be as patient would like to return to home, however, patient's does not feel PATIENT'S NAME: TORRI LOUIS [facility] AGE: 66 Y [address] ROOM: [place] [address] LOCATION: [facility] ADMIT DATE: 01/07/2017 Consultation DISCHARGE DATE: 01/25/2017 FAMILY PHYSICIAN: Erwin Hollis MD ATTENDING PHYSICIAN: Danilo Mathis he can care for her at this time. IOANA OLIVERA FOR DANILO MATHIS MD TD/modl /[id number] d: 02/04/17 2303 t: 02/18/17 1129, CONSULTATION REPORT
--- NOTE | 2017-01-07 18:50 | NUR ---
Here from [facility] where she had surgery for glioblastoma & had brain surgery.Has incision Rt.side of head w/sutures.Has Lt.sided weakness.Up with walker & 1-2 assists.Is A/O.No trouble swallowing.Is unsteady on feet.Alot of allergies.No c/o pain. & daughter were here & they transported her here from [place].
[2017-01-07] MEDS ORDERED: TYLENOL325 MG PO (20:26)
[2017-01-07] MEDS ORDERED: ADVIL200 MG PO (20:27)
[2017-01-07] MEDS ORDERED: ADVAIR 100-501 EACH INH (20:27)
[2017-01-07] MEDS ORDERED: KEPPRA500 MG PO (20:27)
[2017-01-07] MEDS ORDERED: LEVOTHROID (SY50 MCG PO (20:28)
[2017-01-07] MEDS ORDERED: MECLIZINE HCL25 MG PO (20:29)
[2017-01-07] MEDS ORDERED: ZOCOR20 MG PO (20:30)
--- NOTE | 2017-01-08 03:30 | NUR ---
Significant Event: PATIENT IS ALERT AND ORIENTED. VSS. REPORTED THAT SHE CAN BE FORGETFUL ALTHOUGH THIS WAS NOT OBSERVED. BIOPSY SITE TO RIGHT POST. HEAD. UP X1 WITH WALKER/GAIT BELT. PATIENT HAS LEFT SIDED WEAKNESS. NEEDS A SLING FOR LEFT UPPER ARM. PATIENT HAS NOT YET HAD A BM AND CAN NOT RECALL WHEN HER LAST BM WAS. MIRALAX AND COLACE ADMINISTERED LAST NIGHT. HAS SUPPOSITORY AVAILABLE. Follow up:
[2017-01-08 03:57] LABS: BILIRUBIN URINE NEGATIVE (NEGATIVE); BLOOD URINE NEGATIVE /UL (NEGATIVE); COLOR URINE YELLOW (YELLOW); GLUCOSE URINE NEGATIVE (NEGATIVE); KETONE URINE NEGATIVE (NEGATIVE); LEUKOCYTES URINE NEGATIVE /UL (NEGATIVE); NITRITE URINE NEGATIVE (NEGATIVE); PH URINE 6.5 (4.0-8.0); PROTEIN URINE NEGATIVE (NEGATIVE); SPEC GRAVITY URINE 1.015 (1.003-1.035); TURBIDITY URINE CLEAR (CLEAR); UROBILINOGEN URINE NORMAL (NORMAL)
[2017-01-08 06:01] LABS: BASOPHIL % 0.4 %; EOSINOPHIL # 0.2 K/uL (0.0-0.5); HEMATOCRIT 39.8 % (33.0-46.0); HEMOGLOBIN 13.2 g/dL (10.0-15.0); IMMATURE GRANULOCYTE # 0.1 K/uL (0.0-0.3); IMMATURE GRANULOCYTE % 0.9 %; LYMPHOCYTE # 2.4 K/uL (0.8-4.0); MCH 29.7 pg (27.0-34.0); MCHC 33.2 gm/dL (32.0-36.5); MCV 89.4 fl (83.0-98.0); MONOCYTE # 0.8 K/uL (0.0-1.0); MONOCYTE % 7.5 %; MPV 10.8 fl (9.4-12.4); NEUTROPHIL # (ANC) 7.7 K/uL (1.8-7.8); NEUTROPHIL % 68.2 %; NRBC % 0 /100WBC (0-0.00); PLATELET COUNT 217 K/uL (150-450); RBC 4.45 M/uL (3.50-5.50); RDW-CV 13.7 % (11.9-14.6); WBC 11.2 K/uL (4.0-11.0)
[2017-01-08 06:22] LABS: ANION GAP 11.8 (10.0-19.0); CALCIUM 8.9 mg/dL (8.5-10.5); CREATININE 0.8 mg/dL (0.5-1.1); POTASSIUM 3.8 mMol/L (3.7-5.1); TOTAL BILIRUBIN 0.5 mg/dL (0.0-1.5); TOTAL PROTEIN 6.8 g/dL (6.0-8.4)
--- NOTE | 2017-01-08 12:33 | NUR ---
D: Therapeutic Recreation Initial Assessment on the 01/08/17. I: Patient seen for 2 units at 1233 to begin initial evaluation. Pt has recent biopsy with dx glioblastoma and L) side weakness. R: Patient's current living situation and status: house in town Home entrance steps: 3 Living with: Spouses name: Arik # of children: 3 Driving: yes, spouse does drive (car, pickup) Ambulating: I Equipment: N/A Hand Dominance: Right Retort Firer strength: L) side affect Eye sight: glasses L) Lower quadrant Reading ability: N/T Hearing: no problem Speech: clear Cognition: impaired Comprehension: fair Following directions: Initiating: yes Eye contact: good Affect: bright COMMUNITY INVOLVEMENT: grocery shopping, yarsani weekly, out to eat, shopping, visit family LEISURE INTERESTS: watch TV ([employer], [employer] some reading, computer ([employer], [employer], Internet), nicole, 3 outdoor cats Patient is referred by medical staff for treatment and evaluation in the following areas: Community Skills, Functional Leisure Skills, Participation, Leisure Education/Behaviors, Family Education, Cognitive, Emotional. Information obtained: Interview, Chart Review, Family resource, Observation, other. BARRIERS TO LEISURE: Social, Financial, Physical, Lifestyle Transportation Patient determined to be: APPROPRIATE FOR THERAPEUTIC RECREATION ASSESSMENT. TREATMENT WILL INCLUDE: Community living skills training Functional leisure development Physical skills development Cognitive skills development Social skills development Leisure education Emotional/behavioral adaptation Family education Community resources/packet TARGET EQUIPMENT/INFORMATION: Parking Permit will need Community Resources Energy conservation in community setting Van/Service/Taxi Scrip Adapted Leisure Equipment Stress management/Relaxation techniques Functional car transfers Leisure Education Behaviors: Attitude, Awareness, Participation. Patient functional skills level and potential: Guarded, pt demonstrates poor mobility, endurance and safety with concerns for coping. Patient oriented ot TR services on Rehab unit. Pt/family provided input into goals setting and plan of care. Pt's use of LUE and walk. P: Target date set with personal goals established. Will continue with POC focusing on pt/family training and education. For additional information please see Nursing Data Base, PT, OT, CM, ST, initial assessments to [facility] and Interdisciplinary Assessments.
--- NOTE | 2017-01-08 16:12 | NUR ---
Significant event: Patient is alert and oriented. VSS. on Room air. Incision to right head, sutures intact, no drainage noted. Sutures may be removed on 01/15/17. Is 1-2 assist with ambulation and walker/gaitbelt. TOday has needed more 2 assist. Has left side weakness, and is unable to use left arm appropriately. Has had 3 BM's today. Is on regular diet. Cooperative with cares.
--- NOTE | 2017-01-09 03:11 | NUR ---
Significant Event: Patient is alert and oriented. VSS. Incision the right side of her head with sutures intact no dressing no drainage. Sutures to be removed 01/15/17. Left sided weakness, has a sling for her arm when up. Uses a hemiwalker to ambulate. Needs reminded to stand straight and piuck up her left foot when ambulating. Takes meds whole with water. Denies pain or discomfort. Follow up:
--- NOTE | 2017-01-09 15:10 | NUR ---
Significant Event: Patient alert and oriented and cooperative with cares. Denies discomfort. Incision to the R) side of head approximated with sutures. L) side weakness with L) arm in a sling when out of bed. Patient ambulates with 1 assist and use of gait belt and hemiwalker. Patient does drag L) foot when ambulating. Edema noted to bilateral lower legs/feet. Follow up:
--- NOTE | 2017-01-10 03:17 | NUR ---
Significant Event: Patient is alert and oriented. VSS. Up 1-2 assist if tired. Gait is slow and unsteady needs ques to stand straight and clam picker her left foot. Uses GB/Hemiwalker. Denies pain or discomfort. Takes meds whole with water. Incision to the right side of her head with sutures intact well approximated no redness. Order for sutures to be removed 01/15/17. Left sided weakness wears a sling to her left arm with transfers. Patient has C/O she gets very tired between therapies and was asking to lay down when able. Follow up:
--- NOTE | 2017-01-10 12:43 | NUR ---
Significant Event:Pt alert and orientated, expresses needs well. Head incision right side, and back of head intact, sutures intact. Left side weakness with L) arm in a sling when out of bed. Transfers with 1 assist and use of hemiwalker/gaitbelt. Pt noted to drag left foot when ambulating, and edema bilateral legs/feet. Denies pain. Note assessment charted, unchanged. Wears left arm sling for tranfers, can have off after transfer complete. When pt tired, rests in bed between activities, may need 2 assist transfer if tired. Pt has been pleasant and coopertive with plan if care. Follow up:pain control, 01/15/17 remove sutures order.
--- NOTE | 2017-01-11 03:19 | NUR ---
Significant Event: Patient is alert and oriented, VSS. Up 1-2 assist when tired, needs ques to stand straight and flower buncher or picker her left foot. Left arm is flaccid and wears a sling during transfers. Uses a hemiwalker with ambulation and tends to drag her left foot. None pitting edema to lower extremities new roshan hose in room, her other ones were to small. Incision to the right side of her head with sutures intact area well approximated with no redness. Sutures to be removed 01/15/17. Patient tires easily and has requested to lay down when there is a gap in her therapies. Takes meds whole with water. Denies pain or discomfort. Follow up:
--- NOTE | 2017-01-11 11:47 | NUR ---
[facility] Case Management Prefunctioning and Psycho-Social Initial Assessment for 01/07/17 and Case Conference Note for 01/08/17 D: Initial Washer And Crusher TenderDirector Loan and Case Conference Note. I: Input from: patient, family, Dr. Dickens, Ioana RODRIGUEZW R: Reason for admission: Glioblastoma. Admission Date to [facility]: 01/07/17 Admission Date to Hospital: see chart. Prior level of functioning: patient was independent with adl's and househould prior to hospitalization. Prior living situation: one story house Financial resources/expectations: patient has Medicare and Commercial insurance. Resources used: none. Resources available: HHC, outpatient therapy, SNF, [facility], [facility], DME. Family support available: , kids Understands nature of health condition: yes Recognizes impact of health condition on lifestyle: yes Vocational/Educational: retired Behavior/Emotional needs: cues for safety. Monitor for signs and symptoms of depression and anxiety. Legal concerns: none. Discharge goal: home with Assessment: Hafsa is a 66 year old woman from [place], [place] admitted with new dx of glioblastoma. She has good family support. Team conference was held and plan is for patient to remain on [facility] for approx. 3 weeks. Will follow and assist as needed. Orientation to the program and CM services completed with Hafsa. Initial plan of care and estimated length of stay discussed, disclosure statement reviewed including patient assessment rights. P: Target date and individual goals established. Please see POC for details. For additional information please see Nursing Data Base, PT, OT, TR, ST, Initial assessments to [facility].
--- NOTE | 2017-01-11 12:50 | NUR ---
A-SCREENED D/T LOS; NEW ADMIT TO [facility] ADMITTED FROM [facility] S/P BRAIN SURGERY FOR GLIOBLASTOMA. L)SIDED WEAKNESS; NO DIFF. SWALLOWING. NON-PITTING EDEMA TO BLE. HT: 62 IN. WT: 96.5 KG. IBW: 50 KG. BMI: 38.9 LABS REVIEWED: WNL. PREALB 25.0 MEDS: COLACE, ZOCOR, KEPPRA, PRN BOWEL MEDS DIET RX: REGULAR. PO INTAKE 75-100% EST NUTR NEEDS: 1056-9257 KCALS (15-20 KCALS/KG) 75-100 GM PROTEIN (1.5-2.0 GM/KB IBW) 1 ML FLUID/KCAL D-NOT AT NUTRITION RISK; NO NUTRITION DX IDENTIFIED I-CONTINUE W/CURRENT DIET RX M/E-ASSIST NEEDED
--- NOTE | 2017-01-11 13:52 | NUR ---
D: TR progress note for 01/11/17. I: Pt seen for 2 units at 936 for community integration skills building, functional transfers, and safety awareness. R: Pt seen for functional skills building working on mobility, safety, functional transfers and community skills in anticipation for discharge back into community with spouse. Pt given verbal instructions and visual demonstration on proper technique prior to completing transfers. Pt transferred sit > stand from WC CGA, ambulated with alfredito walker 3 feet to/from vehicle CGA and transferred in/out of vehicle CGA with cues for hand placement and safety. Pt was SBA > CGA for BLE management and positioning self with seat surface adapted using trash bag to ease task. Pt tolerated ride with no C/o pain, discomfort or problems with nausea but needed cues for scanning L) due to neglect. P: Will continue to see to address goals and plan of care.
--- NOTE | 2017-01-11 15:41 | NUR ---
A&O. VSS. 1PA-BENT OVER/STAGGERING GAIT. NO C/O PAIN L FLACCID. SLING TO L ARM WHEN UP. SAAD WALKER QUES NOT TO DRAG FOOT. CRANI SITE TO L HEAD OCCUPATIONAL NURSE SUTURES INTACT.
--- NOTE | 2017-01-12 03:20 | NUR ---
Significant Event: A&Ox3, VSS on room air. Sutures to head intact open to air. Flacid left arm, sling on when up, elevated when resting. Left leg weak. Transfers with Ranjan walker/GB with 1PA. Cues to strip picker left leg. BM tonight. Denies pain. Pleasant and cooperative with cares. Follow up:
--- NOTE | 2017-01-12 13:00 | NUR ---
Significant Event:Pt expresses needs well. Remind her to stand tall, does have bent over/staggerling gait. Sling to left arm when up. Walks with alfredito walker, needs ques to not drag left foot. Incision healing on back and left side of head, sutures intact, Pt has been pleasant and cooperative with plan of care. Follow up:pain control. monitor head incision.
--- NOTE | 2017-01-13 04:19 | NUR ---
Significant Event: Alert/oriented x3. VSS on room air. Needs reminder to stand tall, tends to hunch over during transfers. Staggering gait. Wears sling to left arm when up. Uses alfredito walker, needs cues not to drag left foot. Sutures to head intact, no drainage, open to air. 1 assist transfers. Voided well per bathroom, 1 void to day shift credit. Keep left arm resting on pillow in bed, fingers extended forward. No BM this shift. Follow up:
--- NOTE | 2017-01-13 16:05 | NUR ---
Significant Event: Alert and oriented x 3. Needs cues to stand up straight. Leans forward when walking. Sling to left arm when up. Tylenol given x 1 for complaints of MORENO. Walks with 1A alfredito walker. Incision to head open to air. Sutures intact. Patient frustrated this morning that things were moved off her table in order to put her breakfast tray on the table. A second bedside table was added to her room so that her personal items can remain untouched. Follow up:
--- NOTE | 2017-01-14 04:25 | NUR ---
Significant Event: Alert and oriented X3. Vital signs stable. L) sided weakness. Minimal movement of L) arm, unable to move fingers. Wears a sling to L) arm when up, elevated on pillow with fingers extended when in bed. C/o discomfort to L) wrist, denies need for pain medication. Had c/o "0.5/10" sore area to head after bumping her head in the bathroom. Transfers to bathroom with 1-2 assist, gait belt, hemiwalker and arm sling. In the evening used a 2 assist to transfer to bathroom for safety, had difficulty with turning to the side. Pt did do well this am with transfer to BR with 1 assist. Pt does need frequent queuing to stand up straight and to tack picker her left leg. Sutures are intact to head, no drainage. Follow up:
--- NOTE | 2017-01-14 08:00 | NUR ---
pT CONTINUES TO HAVE MOOD SWINGS, I.E. EXPRESSED NEEDS WELL DURING ROUNDS, RESPONDED TO ALL QUESTIONS. NEXT TIME IN ROOM, PT REQUESTED TYLNOL, TOLD HER I WOULD FINISH WHAT I WAS DOING AND BRING THEM BACK WITH ME AND THE REST OF HER AM MEDS, WHICH WAS APPROX. <15 MINUTES. PT WAS QUIET WHEN RETURNED, TOOK MEDS, ASKED FEW QUESTIONS, AND SHE CLOSED HER EYES, AND WOULD NOT RESPOND, LAST QUESTIONS I ASKED HER WAS IF SHE NEEDED ANYTHING ELSE BEFORE I STEPPED OUT OF THE ROOM, NO RESPONSES, I TOLD HER THAT I TOOK THAT A NO, AND DEPARTED.
--- NOTE | 2017-01-14 11:14 | NUR ---
Significant Event:Pt awake during rounds, up to the BR. Likes to have her thyroid medication 30 min before she eats, this was given. Request pain meds as needs. Tires @ end of day, may need 2 assist for tranfers, usually 1 assist during the day, leans forward more as she tires when walking, and to garbage pick up man left leg. Sling on left arm during transfers. Walks with alfredito cane. Sutures intact, back of head and right side. Takes Tylenol for headache PRN. Continues to have 2 bedside tables so staff does not have to move her possessions off to make room for tray, per her request. Pt also has mood swings, even though she usually has a flat effect. Pt has been cooperative with plan of care. Takes meds whole. Follow up:pain control, tires @ end of day, may need 2 assist.
--- NOTE | 2017-01-14 17:54 | NUR ---
Transfered pt from BR approx. 1700. Took much encouragement to get pt to stand up, finally had to lift her shoulders a little, she motioned her to come and help, but there was no room in the BR for him. She finally stood up more than a few inches above her alfredito walker. When she got near the bed she was going to turn the wrong way to sit down, where the was no bed, we got her to turn and she sat @ the end of the bed, and we had to get her to scoot clear to the top side rail before we could lay her down. We positioned her with pillows, then again she had her come over and had him redo it. Pt resting in bed waiting for evening meal.
--- NOTE | 2017-01-15 03:27 | NUR ---
Significant Event: a/o x3, forgetful. takes meds whole with water. c/o indigestion, milk given per patient request, has no meds ordered for indigestion, stitches to right head, intact without drainage. left leg weak, left arm flaccid. keep 2 bedside tables at bedside per patient request. Follow up:
--- NOTE | 2017-01-15 12:49 | NUR ---
Significant Event: PATIENT UP 2 ASSIST, SAAD WALKER. DRAGS LEFT FOOT WHEN AMBULATING. SLING TO LEFT ARM. VITALS STABLE ON ROOM AIR. DENIES PAIN. INCISION TO HEAD INTACT WITH SUTURES. CONTINENT OF BOWEL AND BLADDER. EDEMA TO LOWER LEGS, AGREED TO WEAR TEDS TODAY. MEDS WHOLE WITH WATER. Follow up:
--- NOTE | 2017-01-16 03:00 | NUR ---
Significant Event: A/O x3. lt arm flaccid, left leg weaker. left foot drags with ambulation. up with 2 assist and alfredito walker. cooperative with cares. forgetful. takes meds whole with water. stitches intact to rt side of head. no s/s of infection. stayed at bedside through night. Follow up:
--- NOTE | 2017-01-16 12:50 | NUR ---
Date: 01/15/17. Met with patient and per Dr. Becerril order for a genetics consult. Obtained her personal and family history of cancer and constructed a pedigree. Marcella Beltran MSN, RESIDENCE DIRECTOR-CARRIER ASSOCIATE, AOCNS.
--- NOTE | 2017-01-16 14:33 | NUR ---
Significant Event:PATIENT ALERT BUT IS FORGETFUL. VSS. TRANSFERS WITH 2 ASSIST, GAIT BELT AND HEMIWALKER. DENIES PAIN THIS SHIFT. LEFT ARM FLACCID. LEFT LEG NEEDS LOTS OF THOUGHT TO GET IT TO MOVE THE RIGHT DIRECTION. HAS BEEN AT BEDSIDE ALL DAY. SUTURES TO COME OUT TODAY. NO OTHER COMPLAINTS. Follow up:
--- NOTE | 2017-01-17 03:12 | NUR ---
Significant Event:pt alert and oriented X3. forgetful. cooperative with cares. pt up to bathroom x2 with 2-3 assist. pt was weak with transfers. needs assist with left leg. 3rd time going to bathroom a sit to stand was use for patient safety. pt was feeling weak at this time. reposnds appropriatly. VSS. RA. L side weak. sling used when up. calls appropriatly. took meds whole with water. Follow up:
--- NOTE | 2017-01-17 15:07 | NUR ---
Significant Event:PATIENT ALERT AND ORIENTED THIS SHIFT. IF FORGETFUL AT TIMES. VSS. TRANSFERS WITH 2 ASSIST, GAIT BELT AND SAAD WALKER. SIT TO STAND USED THIS AM FIRST THING SHE WASN'T SURE HOW SHE WAS DOING YET WHEN SHE GOT UP AND HAD BEEN VERY WEAK IN THE NIGHT. TRANSFERRED VERY WELL LATER IN THE MORNING BUT LATER IN THE AFTERNOON. HERE LATER THIS AM THROUGHOUT THE REST OF THE DAY. NO OTHER COMPLAINTS. Follow up:
--- NOTE | 2017-01-18 03:52 | NUR ---
Significant Event: A&Ox3, forgetful. Mood changes this shift/easily irritated. Patient voices concerns with staff "not giving her plenty of time" to walk to the bathroom. She "doesn't want to be rushed". Transfers with 2PA for saftey. Slow, unsteady transfer with alfredito walker, arm sling, and gait belt. Patient needs some cues to stand up straight. Staff has to move left leg at times. Can become easily frustrated when "feet don't move how their supposed too". at bedside all night. VSS on room air. Denies pain. Follow up:continue with plan of care.
--- NOTE | 2017-01-18 13:06 | NUR ---
PT SCREENED D/T LOS. INTAKE REMAINS MOSTLY 75-100%. WT IS STABLE. PT REMAINS NOT AT RISK. WILL ASSIST NEEDED.
--- NOTE | 2017-01-18 14:10 | NUR ---
Significant Event: Alert and oriented x 3. Forgetful. Up with 2A stand pivot or sit to stand. Unsteady. Patient does not like using the sit to stand. Easily agitated. Not always able to picker / packer her left leg to move it during transfers. Needs constant cues to stand up straight. Wants to ambulate to the bathroom with hemiwalker but is not consistent enough with transfers to do so safely. Denies pain. present throughout the shift. Follow up:
--- NOTE | 2017-01-19 04:04 | NUR ---
Significant Event: Patient is alert and oriented. Has been very andrade all night. Dr [place] and Ioana had a meeting with her and her yesterday afternoon. Patient very depressed. Patient transfers/abilities have been declining and she is aware. For safety purposes nursing has tried to use the sit to stand lift on her and she does not want to use it. Refused the lift last night. Her left leg is very weak and she has not been able to lift it to walk any distance. Have transfered her from w/c to bed/toilet with hemiwalker/GB. Denies pain or discomfort. Takes meds whole with water. Follow up: 2 assist stand pivot transfers.
--- NOTE | 2017-01-19 05:18 | NUR ---
At 1909 patient sitting in W/C asks to use the bathroom, stated she wanted to walk into the bathroom with hemiwalker. Nursing assists her into the bathroom in w/c and sloan it about 10 ft away from the toilet since patient voiced she wanted to ambulate. Has been very upset stated she does not want to use the sit to stand lift is afraid if she is not allowed to ambulate she will lose the ability to walk and be confined to her bed then into a penitentiary. For safety reasons nursing has been wanting to use the sit to stand lift. So patient ambulated w/o difficulty from w/c to toilet 1 assist GB/Hemiwalker. Voided then assisted back to w/c 1 assist with GB/Hemiwalker. As she was turning to get back into her w/c she was unable to pepper picker her left leg enough to turn. She was then assisted to her knee, did not fall. Other staff arrived just at that time to help assist her back into the w/c. No injury. Patient has declined with her ambulation/transfers within the last week. Was able to ambulate into the bathroom with 1 assist GB/Hemiwalker just a week ago.
--- NOTE | 2017-01-19 16:17 | NUR ---
Significant Event:PATIENT ALERT AND ORIENTED BUT IS FORGETFUL AT TIMES. VSS. TRANSFERS WITH 2 HEAVY ASSIST, GAIT BELT AND SAAD WALKER. DOES NOT MOVE LEFT FOOT WELL AT ALL. LEFT ARM IS FLACCID. WILL NOT ALLOW STAFF TO USE THE SIT TO STAND ON HER. INCISION ON RIGHT SIDE OF HEAD HEALING WELL. HAS DENIED PAIN ALL SHIFT. UP IN WHEELCHAIR THIS AFTERNOON AND WENT OUT FOR A WHEELCHAIR RIDE IN THE HOSPITAL FOR A BIT. TOLERATED WELL. HAD VISITORS THIS AFTERNOON NO OHTER COMPLAINTS. Follow up:
--- NOTE | 2017-01-20 04:14 | NUR ---
Significant Event: Patient is alert and guarded. VSS. Gets upset with nursing for not ambulating her with the hemiwalker. Nursing tries to explain to her why we cant ambulate her but she sees things her own way. Did try to stand and pivot her last evening to get her in bed, is not standing up straight and lefting her left foot to turn. Have been using the Jing steady t/o the night to the bathroom which is much safer and not as straining. Sling on when transfering. C/O of pain to her left wrist given Tylenol and ice. Have positioned her hand/arm on a pillow. Has been continent of urine. Gets into the bathroom and has a hard time voiding. Moods change constantly is bitter/ and angry tonight. at bedside attentive to her needs. Follow up:
--- NOTE | 2017-01-20 17:01 | NUR ---
Significant Event:PATIENT ALERT AND ORIENTED THIS SHIFT. IS FORGETFUL AT TIMES. HAS DENIED PAIN THIS SHIFT. VSS. TRANSFERS WITH 2 ASSIST, GAIT BELT AND JOSE DE JESUS STEADY TODAY. HAS WORKED VERY WELL BECAUSE SHE CAN STAND BUT HAS LOTS OF TROUBLE LEANING. AT TIMES WILL SIT UP STRAIGHT. ALSO MAKES IT EASIER FOR HER TO GET ONTO THE TOILET SEAT WITHOUT DIFFICULTY. GETS EASILY AGITATED WHEN ASKED CERTAIN QUESTIONS. ESPECIALLY WHEN IN THE BATHROOM. INCISION TO RIGHT HEAD HEALING WELL. HAS BEEN HERE ALL DAY. NO OTHER COMPLAINTS. Follow up:
--- NOTE | 2017-01-21 03:55 | NUR ---
Significant Event: Patient is alert and oriented. VSS. Can be very andrade at times, but was in a better andrade tonight. C/O that when spoken to things sound choppy. Also states things are going to fast so need wo work with her slowly. Has been having trouble standing and moving her left leg nursing has been using the cori steady 2 assist for transfers into the bathroom. Has a hard time turning when transfered with the hemiwalker and become very tired quickly. Has been very upset with nursing this weakend due to this change in her ability. Was refusing the sit to stand lift but settled for the Cori Steady. Is afraid she will lose the capibilities to ambulate. Left arm is flaccid wears a sling during transfers and needs to be elevated at rest. Voids small amouts and takes her along time to void. has been rooming at some times. Takes meds whole. Follow up:
[2017-01-21 06:09] LABS: BASOPHIL % 0.6 %; EOSINOPHIL # 0.1 K/uL (0.0-0.5); EOSINOPHIL % 2.2 %; HEMATOCRIT 34.4 % (33.0-46.0); IMMATURE GRANULOCYTE % 0.2 %; LYMPHOCYTE # 1.5 K/uL (0.8-4.0); LYMPHOCYTE % 32.3 %; MCH 29.2 pg (27.0-34.0); MCV 91.2 fl (83.0-98.0); MONOCYTE # 0.4 K/uL (0.0-1.0); MONOCYTE % 9.1 %; MPV 10.2 fl (9.4-12.4); NEUTROPHIL # (ANC) 2.6 K/uL (1.8-7.8); NEUTROPHIL % 55.6 %; NRBC % 0 /100WBC (0-0.00); PLATELET COUNT 216 K/uL (150-450); RBC 3.77 M/uL (3.50-5.50); RDW-CV 13.7 % (11.9-14.6); WBC 4.6 K/uL (4.0-11.0)
[2017-01-21 06:32] LABS: ALBUMIN 2.8 gm/dL (3.5-5.0); ALK PHOS 98 IU/L (33-138); ALT 31 IU/L (12-78); ANION GAP 9.9 (10.0-19.0); AST 24 IU/L (10-40); BLOOD UREA NITROGEN 17 mg/dL (6-24); CALCIUM 8.9 mg/dL (8.5-10.5); CHLORIDE 110 mMol/L (96-110); CO2 26 mMol/L (22-32); CREATININE 0.6 mg/dL (0.5-1.1); POTASSIUM 3.9 mMol/L (3.7-5.1); SODIUM 142 mMol/L (135-145); TOTAL PROTEIN 6.3 g/dL (6.0-8.4)
[2017-01-21 06:33] LABS: TOTAL BILIRUBIN 0.3 mg/dL (0.0-1.5)
--- NOTE | 2017-01-21 10:43 | NUR ---
D: Furnace Process Supervisor Team Conference Follow up for 01/15/17 I: Input from patient/family R: Met with: patient, delon, Dr. Dickens, Ioana Olivera BODY JOINER Discussed rehab plan, patient progress, discharge plan and estimated length of stay of d/c planned soon. Patient/Family Preference: Patient and are concerned regarding d/c plan. does not feel he can take patient home. Anticipated discharge disposition: ? SNF Education completed: Education was completed with patient regarding length of stay, progress in therapy and d/c plan. Assessment/Recommendation: Team recommends d/c soon as patient does not seem to be making progress. P: Case Coordination: Hafsa is a 66 year old woman from [place], [place] admitted with glioblastoma. She has support of her . does not feel he can take patient home. Have looked into SNFs in area, but will not take due to cost of radiation and oral Temodar. Will follow and assist as needed.
--- NOTE | 2017-01-21 15:21 | NUR ---
It was reported that pt has had a significant decline in function over the last few days, that at the beginning of the week pt had been ambulating with 1 assist and a alfredito walker to/from the bathroom. Pt did get lowered to the floor due to her left leg dragging and unable to turn. Looking at pt's chart pt had a bisopy of her glioblastoma, she is not currently receiving chemo, radiation or steroids, questioning if glioblastoma has grown and caused decline in condition. Pt was seen by pallative care today due to decline in condition. Pt is flacid on left side, had to hold her up to do all cares this am. Pt is able to feed herself and did put on makeup this am. Pt has not c/o pain this shift.
--- NOTE | 2017-01-22 04:34 | NUR ---
Significant Event: PATIENT IS ALERT AND ORIENTED TODAY. SHE APPEARS TO BE IN A BETTER MOOD TODAY. FAMILY VISITED. USING [employer] FOR TRANSFERS. PATIENT DOES GET UP TO BATHROOM WITH 2 ASSIST. MRI LAST NIGHT. NO RESULTS UP OF YET. STARTED STEROIDS LAST NIGHT. DENIES PAIN THROUGHOUT. Follow up:
--- NOTE | 2017-01-22 14:49 | NUR ---
D: TR progress note for 01/22/17. I: Pt seen for 2 units at 930 for visual scanning, leisure participation, fine motor skills, coordination, dexterity and coping skills. R: Pt seen for functional skills building working on scanning, attention to task, problem solving, fine motor skills and coordination to improve dexterity plus leisure participation for coping strategies to increase independence with leisure needs. Pt completed game [employer] min > SBA, could count correctly with cues for scanning L), needed mod > max cues for scanning along with visual cue line and was able to identify and sequencing moves with some difficulty but of cued could complete with extra time allotted. Pt utilized RUE demonstrating good fine motor skills and coordination with use of adaptive tray duarte. Pt continues to need cues for attention to task and problem solving. P: Will continue to see to address goals and plan of care.
--- NOTE | 2017-01-22 15:30 | NUR ---
Significant event: ALert and oriented. Talkative. Uses Jing Steady lift for transfers, leans to the left. Did feed herself and put on makeup. Denies pain. at bedside.
--- NOTE | 2017-01-23 03:17 | NUR ---
Significant Event:A/O X3. Forgetful. VEry talkative about random things. Transfer 2 assist with gaitbelt and cori steadt, leans to far left. Left side flaccid and edematous. Try to keep extremities elevated. RLE also edematous. Calf pumps on. Saline lock to right hand. VSS on room air, afebrile. Denies pain. Meds whole. Call light in reach, bed alarm on. Follow up:Transfers.
--- NOTE | 2017-01-23 11:58 | NUR ---
D: TR progress note for 01/23/17. I: Pt was to be seen for 2 units at 1100 in group session. R: Pt not seen due to refusal. P: Will continue to see to address goals and plan of care.
--- NOTE | 2017-01-23 14:33 | NUR ---
Significant Event: PATIENT UP 2 ASSIST, JOSE DE JESUS STEADY. LEANS LEFT WITHOUT REALIZING IT. VITALS STABLE ON ROOM AIR. DENIES PAIN. AT BEDSIDE MUCH OF THE DAY. ORIENTED BUT FORGETFUL AT TIMES AND MAKES REPETITIVE STATEMENTS. FEEDS SELF WITH RIGHT HAND, NO ISSUES SWALLOWING. MEDS WHOLE WITH WATER. SOME STRESS INCONTINENCE. Follow up:
--- NOTE | 2017-01-24 04:24 | NUR ---
Significant Event: up with 2 assist, rt arm sling, gait belt and cori steady. No movement to left arm/hand, remains flaccid. Moves foot/toes on left. Leans to the left when upright on lift. takes meds whole with water. Forgetful, repetitive at times. Last bm on , voids x 4, po 400 ml. Feels tingling to left fingers/lower arm with firmer pressure to arm. Follow up:Accuchecks bid, safety with transfers, ? possibility for placement at [facility] in [place]
--- NOTE | 2017-01-24 11:18 | NUR ---
A-NUTRITION F/U CBW (W/C SCALE): 92.9 KG. ADMIT WT (BED SCALE): 96.5 KG. L)SIDE EDEMATOUS; RLE EDEMATOUS 01/21 LABS REVIEWED MEDS: DECADRON, AND PROTONIX STARTED ON 01/21 DIET RX: REGULAR. PO INTAKE 50-100% FOR THE MOST PART; AVG IS 78%. CURRENT PO INTAKE MEETING EST NUTR. NEEDS D-NOT AT NUTRITION RISK; NO NUTRITION DX IDENTIFIED I-CONTINUE W/CURRENT DIET RX M/E-WILL F/U PO INTAKE, WT, AND POC IN 7-10 DAYS
--- NOTE | 2017-01-24 13:05 | NUR ---
D: TR progress note for 01/24/17. I: Pt seen for 2 units for community integration skills building, functional transfers, and safety awareness. R: Pt seen for functional skills building working on mobility, safety, functional transfers and community skills in anticipation for discharge back into community with family. Pt's spouse present for session, transferred into their vehicle with Therapies (OT/TR) providing all hands on assistance and spouse observing to start training. Pt completed slideboard transfers into vehicle CGA with step by step instructions and tactile cues, completed stand pivot out min assist with again cues for technique. Tolerated ride with no C/o pain or discomfort. P: Will discharge to [facility] tomorrow, 01/25/17.
--- NOTE | 2017-01-24 13:47 | NUR ---
Significant Event: Pt up in room to BR with use of cori steady, 2 assist, leans left, moreno. well. Stay with pt in BR r/t lean. Accuchecks 125 this am. No sliding scale ordered. BM x 2 today. Pt cooperative with cares. Good oral intake, takes meds well. Left arm sling on during transfers. Left arm flaccid. Slight movement with difficulty in LLE. Follow up:Plan for pt to transfer to [facility] in [place] tomorrow, safety, activity
--- NOTE | 2017-01-25 02:53 | NUR ---
Pt is a two assist with cori steady. Pt leans to the left. Pt received FIM shower this shift. Sling to left arm when up. Left arm flaccid. Left leg weak. Plan is to transfer today. VSS. Follow up: Transfer to [facility], activity, safety
[2017-01-25] MEDS ORDERED: VITAMIN B-12500 MCG PO (03:00)
[2017-01-25] MEDS ORDERED: DECADRON4 MG PO (03:02)
[2017-01-25] MEDS ORDERED: COLACE100 MG PO (03:03)
[2017-01-25] MEDS ORDERED: PROTONIX20 MG PO (03:05)
[2017-01-25] MEDS ORDERED: MIRALAX17 GM PO (03:06)
[2017-01-25] MEDS ORDERED: ZOCOR20 MG PO (03:07)
[2017-01-25] MEDS ORDERED: DULCOLAX10 MG R (03:11)
[2017-01-25] MEDS ORDERED: MILK OF MA400 MG/5 M PO (03:13)
[2017-01-25] MEDS ORDERED: DULERA 100 MCG/51 EA INH (09:43)
--- NOTE | 2017-01-25 10:34 | NUR ---
D: Sewer Digger Team Conference Follow up for 01/22/17 and Discharge note for 01/25/17 I: Input from patient/family R: Met with: patient, family, Ioana Rose BLACKENER Discussed rehab plan, patient progress, discharge plan and estimated length of stay of d/c planned on 01/25/17 Patient/Family Preference: patient is in agreement with this plan. Anticipated discharge disposition: going to [facility] in [place], [place]. Education completed: Education was completed with patient and family regarding length of stay, progress in therapy and discharge plan. Assessment/Recommendation: Team is okay with d/c. P: Case Coordination: Hafsa is a 66 year old woman from [place], [place] admitted with a glioblastoma. Plan is for patient to d/c on 01/25/17 to [facility]. [facility] set up with [facility]. Equipment set up with [employer]. Will call patient next week to see how she is doing post discharge.
--- NOTE | 2017-01-25 15:35 | NUR ---
Significant Event: Patient alert and oriented. Up with 2 assist cori steady lift. Left sided weakness. Left arm is flaccid. Wears sling to left arm when up and with transfers. Left leg is weak. Will go to the assisted living facility in [place] today. Follow up:
== END 2017-01-25 11:00 | DRG 92 ==
LOC: GIRP 15:40
PROVIDERS: ADMIT Physical Medicine & Rehabilitation
DX: R26.81 Unsteadiness on feet (principal); C71.9 Malignant neoplasm of brain, unspecified; Z74.1 Need for assistance with personal care; R42 Dizziness and giddiness; G44.89 Other headache syndrome; E03.9 Hypothyroidism, unspecified; E78.5 Hyperlipidemia, unspecified; E66.09 Other obesity due to excess calories; Z68.38 Body mass index [BMI] 38.0-38.9, adult; J45.909 Unspecified asthma, uncomplicated; Z88.8 Allergy status to other drugs, medicaments and biological substances; M19.072 Primary osteoarthritis, left ankle and foot; M17.12 Unilateral primary osteoarthritis, left knee
CPT/HCPCS: A9577; J1100; J1650